=== PATIENT | male | born 1970 | race Caucasian/White ===

== ENCOUNTER → 2021-04-21 | Outpatient (CLI) | payer OTHER ==
--- NOTE | 2021-04-21 18:01 | RAD ---
XR LUMBAR SPINE 2-3V History: Low back pain Comparison: None. Technique: 3 views of the lumbar spine. Findings: There are 5 non-rib bearing lumbar vertebral segments. Variant anatomy bridging osteophytes at the le ft L4 and L5 transverse processes. There is no evidence of fracture. No destructive osseous lesions. Mild levoconvex curvature at the thoracolumbar junction. Mild facet degenerative changes. The intervertebral disc heights are relatively preserved. There is mild endplate osteophytes. Sacroiliac joints are unremarkable. Density in the right lower quadrant may represent surgical material. IMPRESSION: 1. 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 2. Thank you anatomy with apparent bridging osteophytes at the left transverse process of L4 and L5. Electronically signed by: Giorgio Trejo MD (04/21/2021 5:59 PM) [id number]
--- NOTE | 2021-04-21 18:02 | RAD ---
XR KNEE 1-2 VIEWS History: Bilateral knee pain Comparison: None. Technique: AP and lateral views of the bilateral knees Findings: Osseous mineralization is normal. No fracture or dislocaton. Both knees demonstrate tricompartmental degenerative changes including patellofemoral and medial predominant joint space narrowing and osteop hyte formation. No significant effusions. Impression: 1. Moderate bilateral knee osteoarthritis. No acute osseous abnormality. Electronically signed by: Giorgio Trejo MD (04/21/2021 6:00 PM) [id number]
== END ==
LOC: RAD 09:45
PROVIDERS: ATTEND Family Medicine
DX: Z02.71 Encounter for disability determination (principal); M17.0 Bilateral primary osteoarthritis of knee; M25.762 Osteophyte, left knee; M25.761 Osteophyte, right knee; M25.78 Osteophyte, vertebrae
CPT/HCPCS: 72100; 73560-50